=== PATIENT | male | born 1960 | race Caucasian/White ===

== ENCOUNTER 2024-11-16 08:46 | Observation (INO) ==
[2024-11-16 09:28] LABS: ABS Lymphocytes 0.6 10^3/uL (1.0-4.8); ABS Monocytes 0.7 10^3/uL (0.0-1.1); ABS Neutrophils 4.5 10^3/uL (1.5-7.6); ABS Nucleated RBC 0.01 10^3/ul; Eosinophil % 0.4 %; Hemoglobin 12.8 g/dL (13.2-16.3); Lymphocyte % 10.3 %; Mean Corpuscular Hemoglobin 30.7 pg (27-33); Mean Corpuscular Hgb Conc 34.5 g/dL (31-36); Mean Corpuscular Volume 89.1 fL (80-97); Mean Platelet Volume 8.7 fL (7.5-11.2); Nucleated Red Blood Cells % 0.1 %/100WBC (0.0-0.8); Platelet Count 114 10^3/uL (150-450); Red Blood Count 4.15 10^6/uL (4.06-5.63); Red Cell Distribution Width 19.3 % (12-17); White Blood Count 5.9 10^3/uL (3.6-10.2)
[2024-11-16 09:30] LABS: INR 1.92 (0.85-1.14)
[2024-11-16 10:07] LABS: Potassium 4.6 mmol/L (3.5-5.0)
[2024-11-16 10:08] LABS: Albumin 2.3 g/dL (3.5-5.7); Albumin/Globulin Ratio 0.4 (1-3); Calcium 8.4 mg/dL (8.6-10.3); Creatinine, Serum 0.93 mg/dL (0.67-1.17); Globulin 5.5 g/dL (2-4); Total Protein 7.8 g/dL (6.4-8.9); eGFR CKD-EPI 91.7 (>60)
[2024-11-16] MEDS: Lactulose 30 ml UDC PO ONE (13:29)
[2024-11-16 17:05] LABS: Urine Appearance Clear; Urine Bilirubin 1+ (Negative); Urine Blood Negative (Negative); Urine Color Dark-Yellow; Urine Glucose Negative (Negative); Urine Ketones Trace (Negative); Urine Nitrite Negative (Negative); Urine Protein 1+ (>=30 mg/dL) (Negative); Urine Specific Gravity 1.034 (1.002-1.030); Urine Urobilinogen 3+ (Negative)
[2024-11-16 17:14] LABS: Urine Bacteria Absent /HPF (Absent); Urine Red Blood Cell Trace(0-2/hpf) /HPF (0-Trace); Urine Squamous Epithelial Cell Present /HPF (Absent); Urine White Blood Cell Trace(0-5/hpf) /HPF (0-Trace)
[2024-11-16] MEDS: Enoxaparin 40 MG/0.4 ML SYR SUBCUT SCH (19:00)
[2024-11-16] MEDS: Lactulose 30 ml UDC PO SCH (19:00)
[2024-11-16] MEDS: Nystatin TOP POWDER 15 GM BTL TOPICAL SCH (20:40)
[2024-11-17] MEDS: Morphine 2 MG/ML SYRINGE IV ONE (03:59)
[2024-11-17 06:15] LABS: ABS Basophils 0.1 10^3/uL (0.0-0.1); ABS Eosinophils 0.2 10^3/uL (0.0-0.5); ABS Lymphocytes 1.2 10^3/uL (1.0-4.8); ABS Monocytes 0.8 10^3/uL (0.0-1.1); ABS Neutrophils 2.3 10^3/uL (1.5-7.6); ABS Nucleated RBC 0.01 10^3/ul; Eosinophil % 4.6 %; Hematocrit 32.4 % (38-53); Hemoglobin 11.4 g/dL (13.2-16.3); Lymphocyte % 26.5 %; Mean Corpuscular Hemoglobin 31.4 pg (27-33); Mean Corpuscular Volume 89.7 fL (80-97); Mean Platelet Volume 8.9 fL (7.5-11.2); Nucleated Red Blood Cells % 0.2 %/100WBC (0.0-0.8); Platelet Count 103 10^3/uL (150-450); Red Blood Count 3.61 10^6/uL (4.06-5.63); Red Cell Distribution Width 20.3 % (12-17); White Blood Count 4.7 10^3/uL (3.6-10.2)
[2024-11-17] MEDS ORDERED: Lorazepam PYXIS KEY PRN (06:38)
[2024-11-17 06:46] LABS: Albumin/Globulin Ratio 0.4 (1-3); Calcium 8.2 mg/dL (8.6-10.3); Creatinine, Serum 0.86 mg/dL (0.67-1.17); Globulin 4.5 g/dL (2-4); Magnesium 1.7 mg/dL (1.9-2.7); Phosphorus 3.4 mg/dL (2.5-5.0); Potassium 4.1 mmol/L (3.5-5.0); Total Bilirubin 4.8 mg/dL (0.2-1.0); Total Protein 6.5 g/dL (6.4-8.9); eGFR CKD-EPI 96.7 (>60)
[2024-11-17] MEDS ORDERED: LORazepam 2 mg VIAL 1 ml IV PUSH SCH (07:00)
[2024-11-17] MEDS: Magnesium Sulfate 2 gm BAG 2 GM/50 ML BAG IVPB ONE (08:32)
[2024-11-17] MEDS: Thiamine 100 MG/ML 2 ml VIAL (200 mg) IM ONE (08:33)
[2024-11-17] MEDS: Multivitamins/Minerals TAB PO SCH (08:39)
[2024-11-17] MEDS: Magnesium Sulfate IV 1GM/100ML 1 GM/100 ML BAG IV ONE (10:30)
[2024-11-17 10:59] LABS: C Reactive Protein 9.19 mg/L (<8.01)
[2024-11-17] MEDS: Lactulose 30 ml UDC PO SCH (11:25)
[2024-11-17 13:52] LABS: Body Fluid Appearance Clear; Body Fluid Color Yellow; Body Fluid Source Peritonial Fluid
[2024-11-17 14:10] LABS: Body Fluid Total Nucleated 35 /mcL
[2024-11-17 15:12] LABS: Body Fluid Mono 86 %; Body Fluid Other Cells 15; Body Fluid Total Cells Counted 200
[2024-11-17] MEDS: Albumin Human 25% 25 GM/100 ML BTL IV SCH (16:54)
[2024-11-18 05:40] LABS: Hematocrit 29.4 % (38-53); Hemoglobin 10.4 g/dL (13.2-16.3); Mean Corpuscular Hemoglobin 31.7 pg (27-33); Mean Corpuscular Hgb Conc 35.4 g/dL (31-36); Mean Corpuscular Volume 89.7 fL (80-97); Red Blood Count 3.28 10^6/uL (4.06-5.63); Red Cell Distribution Width 19.4 % (12-17); White Blood Count 4.3 10^3/uL (3.6-10.2)
[2024-11-18 05:53] LABS: Calcium 7.7 mg/dL (8.6-10.3); Creatinine, Serum 0.84 mg/dL (0.67-1.17); Magnesium 1.9 mg/dL (1.9-2.7); Potassium 3.8 mmol/L (3.5-5.0); eGFR CKD-EPI 97.4 (>60)
[2024-11-18 06:04] LABS: ABS Basophils 0.1 10^3/uL (0.0-0.1); ABS Eosinophils 0.2 10^3/uL (0.0-0.5); ABS Lymphocytes 1.3 10^3/uL (1.0-4.8); ABS Monocytes 0.8 10^3/uL (0.0-1.1); ABS Neutrophils 1.9 10^3/uL (1.5-7.6); ABS Nucleated RBC 0.01 10^3/ul; Eosinophil % 4.7 %; Lymphocyte % 30.1 %; Mean Platelet Volume 8.7 fL (7.5-11.2); Nucleated Red Blood Cells % 0.2 %/100WBC (0.0-0.8); Platelet Count 90 10^3/uL (150-450)
[2024-11-18 08:15] LABS: Albumin 2.1 g/dL (3.5-5.7); Albumin/Globulin Ratio 0.6 (1-3); Direct Bilirubin 1.4 mg/dL (0.03-0.18); Globulin 3.8 g/dL (2-4); Indirect Bilirubin 1.8 mg/dL (0.3-1.0); Total Bilirubin 3.2 mg/dL (0.2-1.0); Total Protein 5.9 g/dL (6.4-8.9)
[2024-11-18] MEDS: Potassium Chlor 20 meq TAB.ER PO ONE (08:44)
[2024-11-18] MEDS: Magnesium Sulfate IV 1GM/100ML 1 GM/100 ML BAG IV ONE (08:51)
[2024-11-18 10:50] VITALS: BP 113/76
[2024-11-18 12:49] LABS: Lactate Dehydrogenase, BF 35 U/L
[2024-11-18 16:24] LABS: Albumin, BF 0.3 g/dL; Fluid Type, Albumin PERITONEAL; Fluid Type, Protein, Total PERITONEAL; Glucose, BF 128 mg/dL; Total Protein, BF 0.6 g/dL
== END 2024-11-18 14:00 | disposition home or self-care (01) ==
LOC: ED 08:46 → EDHOLD 08:46 → SUATTDRO 13:56 → MED 11-17 02:44
PROVIDERS: ADMIT Internal Medicine; ATTEND Internal Medicine